=== PATIENT | male | born 1955 | race Caucasian/White ===

== ENCOUNTER 2021-08-02 11:35 | Emergency (ER) | payer BC ==
[~2021-08-02] VITALS: Ht 177.8 cm; Wt 122.7 kg
[2021-08-02] MEDS ORDERED: ULTRAM50 M1 PO (12:22)
[2021-08-02] MEDS ORDERED: AMOXICILLIN500 MG PO (12:22)
[2021-08-02 13:05] VITALS: BP 150/93
== END 2021-08-02 13:05 | disposition home or self-care (01) | DRG 159 ==
LOC: ED 11:35
DX: K04.7 Periapical abscess without sinus (principal); K02.9 Dental caries, unspecified; I10 Essential (primary) hypertension